=== PATIENT | male | born 1995 | race Asian ===

== ENCOUNTER 2018-04-24 21:03 | Emergency (ER) | payer OTHER ==
[2018-04-24] MEDS: ONDANSETRON 4MG/2ML VIAL (J2405) IV (21:41)
[2018-04-24] MEDS: MORPHINE 4 MG/ML 1ML VIAL/SYRINGE (J2270) IV (21:42)
[2018-04-24] MEDS: PROPOFOL 200 MG/20 ML VIAL IV (22:22)
== END 2018-04-24 23:24 | disposition home or self-care (01) ==
LOC: M ED 23:24
DX: S43.005A Unspecified dislocation of left shoulder joint, initial encounter (principal); W19.XXXA Unspecified fall, initial encounter; Y99.1 Military activity; Y92.410 Unspecified street and highway as the place of occurrence of the external cause
CPT/HCPCS: J2270

== ENCOUNTER 2018-09-14 14:02 | Emergency (ER) | payer OTHER ==
[~2018-09-14] VITALS: Ht 170.2 cm; Wt 67.3 kg
[2018-09-14] MEDS ORDERED: diphenhydrAMINE 50 MG CAP PO ONE (15:30)
[2018-09-14] MEDS ORDERED: BENA25CA4 PO (15:33)
[2018-09-14 15:42] VITALS: BP 138/64
== END 2018-09-14 15:52 | disposition home or self-care (01) ==
LOC: M ED 14:02
DX: L40.3 Pustulosis palmaris et plantaris (principal); T50.B15A Adverse effect of smallpox vaccines, initial encounter; X58.XXXA Exposure to other specified factors, initial encounter; Y92.89 Other specified places as the place of occurrence of the external cause

== ENCOUNTER 2020-06-08 21:31 | Emergency (ER) | payer OTHER ==
[~2020-06-08] VITALS: Ht 172.7 cm; Wt 77.4 kg
[~2020-06-08 21:31] MED LIST: BENA25CA4 PO
[2020-06-08 21:32] VITALS: BP 135/91
--- OUTSIDE RECORDS SUMMARY | 2020-06-08 21:36 | CCD ---
Author Author [facility] Organization [facility] Address Unknown Phone Unavailable Support Name Relationship Address Phone [facility] Next Of Kin [address] [place] [address] Unavailable REJI HURTADO Next Of Kin [address] [place] [address] Re-disclosure Warning The records that you are about to access may contain information from federally-assisted alcohol or drug abuse programs. If such information is present, then the following federally mandated warning applies: This information has been disclosed to you from records protected by federal confidentiality rules (42 CFR part 2). The federal rules prohibit you from making any further disclosure of this information unless further disclosure is expressly permitted by the written consent of the person to whom it pertains or as otherwise permitted by 42 CFR part 2. A general authorization for the release of medical or other information is NOT sufficient for this purpose. The Federal rules restrict any use of the information to criminally investigate or prosecute any alcohol or drug abuse patient.The records that you are about to access may contain highly sensitive health information, the redisclosure of which is protected by Article 27-F of the [facility] Public Health law. If you continue you may have access to information: Regarding HIV / AIDS; Provided by facilities licensed or operated by the [facility] Office of Mental Health; or Provided by the [facility] Office for People With Developmental Disabilities. If such information is present, then the following [facility] mandated warning applies: This information has been disclosed to you from confidential records which are protected by state law. State law prohibits you from making any further disclosure of this information without the specific written consent of the person to whom it pertains, or as otherwise permitted by law. Any unauthorized further disclosure in violation of state law may result in a fine or mcc sentence or both. A general authorization for the release of medical or other information is NOT sufficient authorization for further disc losure. Insurance Providers Payer name Policy type / Coverage type Policy ID Covered republican ID Covered republican's relationship to cormier Policy Cormier Plan Information [facility] ACTIVE DUTY [id number]
--- NOTE | 2020-06-08 22:20 | REPVR ---
PROCEDURE INFORMATION: Exam: XR Right Elbow Exam date and time: 06/08/2020 9:59 PM Age: 24 years old Clinical indication: Pain; Elbow; Right; Additional info: Fall 3 days ago TECHNIQUE: Imaging protocol: XR Right elbow. Views: 3 or more views. COMPARISON: No relevant prior studies available. FINDINGS: Bones/joints: Small joint effusion with displacement of the anterior fat pad. No acute fractures are identified. Soft tissues: Normal. IMPRESSION: Joint effusion which raises the level of suspicion for intra-articular fracture, however, a definite fracture is not seen. Electronically signed by: Abhijit Sherman On 06/08/2020 22:20:11 PM
--- OUTSIDE RECORDS SUMMARY | 2020-06-08 23:15 | CCD ---
Author Author [facility] Organization [facility] Address Unknown Phone Unavailable Support Name Relationship Address Phone [facility] Next Of Kin [address] [place] [address] Unavailable REJI HURTADO Next Of Kin [address] [place] [address] Re-disclosure Warning The records that you are [...] is protected by Article 27-F of the [facility] Public Health law. If you continue you may have access to information: Regarding HIV / AIDS; Provided by facilities licensed or operated by the [facility] Office of Mental Health; or Provided by the [facility] Office for People With Developmental Disabilities. If such information is present, then the following [facility] mandated warning applies: This information has been [...] law may result in a fine or nursing home sentence or both. A general authorization for the release of medical or other information is NOT sufficient authorization for further disc losure. Insurance Providers Payer name Policy type / Coverage type Policy ID Covered republican ID Covered republican's relationship to cormier Policy Cormier Plan Information [facility] [id number] SP [id number] [facility] [employer] [id number] SP [id number]
== END 2020-06-08 23:10 | disposition home or self-care (01) ==
LOC: M ED 21:31
DX: S59.901A Unspecified injury of right elbow, initial encounter (principal); W00.0XXA Fall on same level due to ice and snow, initial encounter; Y92.89 Other specified places as the place of occurrence of the external cause; Y99.0 Civilian activity done for income or pay; M25.421 Effusion, right elbow